=== PATIENT | male | born 1980 | race Caucasian/White ===

== ENCOUNTER 2023-07-14 21:00 | Emergency (ER) | payer MEDICAID ==
[~2023-07-14] VITALS: Ht 180.3 cm; Wt 99.8 kg
[2023-07-14 21:30] VITALS: BP_SYST 148; PULSE 94; RESP 18; TEMP 98.4; O2SAT 97
[2023-07-14 22:33] LABS: INFLUENZA TYPE A Negative (NEGATIVE); INFLUENZA TYPE B NEGATIVE (NEGATIVE)
[2023-07-14 22:34] LABS: COVID19 ANTIGEN SOFIA FIA NEGATIVE (NEGATIVE)
[2023-07-14] MEDS ORDERED: DIVALPROEX SODIUM 250 MG TABLET(DEPAKOTE) PO ONE (22:45)
[2023-07-14] MEDS ORDERED: PHEDM120 PO (22:47)
[2023-07-14] MEDS ORDERED: IBUP-1969 PO (22:47)
[2023-07-14 23:26] VITALS: BP_SYST 148; PULSE 94; RESP 18; TEMP 98.4; O2SAT 97
== END 2023-07-14 23:26 | disposition home or self-care (01) ==
LOC: SED 21:00
DX: B34.9 Viral infection, unspecified (principal); R05.9 Cough, unspecified; R09.81 Nasal congestion; M79.10 Myalgia, unspecified site; Z86.69 Personal history of other diseases of the nervous system and sense organs; Z79.899 Other long term (current) drug therapy; Z20.822 Contact with and (suspected) exposure to COVID-19
CPT/HCPCS: 36415; 82962; 99283

== ENCOUNTER 2024-02-27 11:38 | Emergency (ER) | payer MEDICAID ==
[~2024-02-27] VITALS: Ht 180.3 cm; Wt 111.1 kg
[~2024-02-27 11:38] MED LIST: IBUP-1969 PO; PHEDM120 PO
[2024-02-27 11:46] VITALS: BP_SYST 151; PULSE 90; RESP 20; TEMP 98.3; O2SAT 98
[2024-02-27 13:27] VITALS: BP_SYST 151; PULSE 90; RESP 20; TEMP 98.3; O2SAT 98
== END 2024-02-27 13:28 | disposition home or self-care (01) ==
LOC: SED 11:38
DX: M72.2 Plantar fascial fibromatosis (principal)
CPT/HCPCS: 99281; 99282

== ENCOUNTER 2024-03-21 10:01 | Emergency (ER) | payer MEDICAID ==
[~2024-03-21] VITALS: Ht 180.3 cm; Wt 108.0 kg
[2024-03-21 10:27] VITALS: BP_SYST 136; PULSE 94; RESP 16; TEMP 98.4; O2SAT 93
[2024-03-21 11:18] LABS: BASOPHILS # (AUTO) 0.1 K/uL (0.0-0.2); BASOPHILS % (AUTO) 0.7 % (0.0-2.0); EOSINOPHILS # (AUTO) 0.2 K/uL (0.0-0.4); EOSINOPHILS % (AUTO) 2.4 % (0.0-4.0); HEMATOCRIT 45.6 % (36-54); HEMOGLOBIN 15.5 g/dL (14.0-18.0); LYMPHOCYTES # (AUTO) 2.1 K/uL (1.0-5.5); LYMPHOCYTES % (AUTO) 25.4 % (20.5-51.5); MEAN CORPUSCULAR HEMOGLOBIN 30 pg (27-31); MEAN CORPUSCULAR HGB CONC 34 % (32-36); MEAN CORPUSCULAR VOLUME 88 fL (79.0-98.0); MONOCYTES # (AUTO) 0.6 K/uL (0.0-1.0); MONOCYTES % (AUTO) 7.3 % (1.7-9.3); NEUTROPHILS # (AUTO) 5.3 K/uL (1.8-7.7); NEUTROPHILS % (AUTO) 64.2 % (40.0-70.0); PLATELET COUNT (AUTO) 226 K/uL (130-430); RED BLOOD CELL COUNT(AUTO) 5.18 MIL/uL (4.2-6.2); RED CELL DISTRIBUTION WIDTH 13.9 % (9.0-15.0); WHITE BLOOD COUNT (AUTO) 8.2 K/uL (4.8-10.8)
[2024-03-21 11:20] LABS: ERYTHROCYTE SEDIMENTATION RATE 3 MM/HR (0-15)
[2024-03-21 11:41] LABS: PROTHROMBIN TIME 10.4 SECS (9.5-12.5)
[2024-03-21 11:57] LABS: CALCIUM 9.1 mg/dL (8.4-11.0); CREATININE 0.64 mg/dL (0.55-1.30); POTASSIUM 4.2 mmol/L (3.5-5.1)
[2024-03-21] MEDS ORDERED: IBUP-1971 PO (13:51)
[2024-03-21] MEDS ORDERED: CORTEARS LEFT EAR (13:51)
[2024-03-21] MEDS ORDERED: AMOX-423 PO (13:51)
[2024-03-21 14:31] VITALS: BP_SYST 138; PULSE 89; RESP 15; TEMP 98.4; O2SAT 94
== END 2024-03-21 14:28 | disposition home or self-care (01) ==
LOC: SED 10:01
DX: H60.592 Other noninfective acute otitis externa, left ear (principal); R51.9 Headache, unspecified; I10 Essential (primary) hypertension; E11.9 Type 2 diabetes mellitus without complications; Z79.899 Other long term (current) drug therapy; Z79.2 Long term (current) use of antibiotics
CPT/HCPCS: 36415; 70450-TC; 80048; 82948; 85025; 85610; 85651; 85730; 99284